=== PATIENT | male | born 1955 | race Caucasian/White ===

== ENCOUNTER 2020-04-05 13:12 | Emergency (ER) | payer BC ==
[2020-04-05] MEDS ORDERED: Proparacaine 0.5% Opth 15 ML BOT ONE (14:07)
[2020-04-05] MEDS ORDERED: Boostrix 0.5 ML (Tdap) VIAL ONE (14:07)
[2020-04-05] MEDS ORDERED: Fluorescein Opthalmic Strip ONE (14:12)
[2020-04-05 14:34] LABS: #Eosinphils 0.2 thou/uL (0.0-0.7); #Monocytes 0.6 thou/uL (0.11-0.59); #Neutrophils 6.2 thou/uL (1.40-6.50); %Basophils 0.5 % (0.0-1.0); %Eosinophils 2.1 % (0.0-10.0); %Lymphocytes 12.7 % (21.0-51.0); %Monocytes 7.3 % (0.0-10.0); %Neutrophils 77.4 % (42.0-75.0); Hemoglobin 14.8 g/dL (14.0-18.0); Mean Corpuscular HGB CONC 33.6 g/dL (32.0-36.0); Mean Corpuscular Hemoglobin 30.7 pg (27.0-31.0); Mean Corpuscular Volume 91.3 fL (78.0-98.0); Mean Platelet Volume 8.6 fL (7.4-10.4); Platelet Count 154 thou/uL (130-400); Red Blood Cell (RBC) Count 4.81 mill/uL (4.70-6.10)
--- NOTE | 2020-04-05 14:45 | CT ---
BRAIN CT WITHOUT IV CONTRAST: History: Altered mental status. FINDINGS: No focal mass or midline shift. No intra or extraaxial hemorrhage. Mild sinus mucosal changes in the ethmoid sinuses. Mastoids are clear of acute process. IMPRESSION: No significant acute intracranial process. Mild ethmoid sinus mucosal disease. POS: RRE
[2020-04-05 15:00] LABS: ALT (SGPT) 34 U/L (8-55); AST (SGOT) 22 U/L (5-34); Albumin 4.3 g/dL (3.4-4.8); Alkaline Phosphatase 86 U/L (40-110); Anion Gap 14 mmol/L (10-20); BUN (Urea Nitrogen) 13 mg/dL (8.4-25.7); Bilirubin, Total 0.6 mg/dL (0.2-1.2); CK (CPK) 158 U/L (30-200); Calc. Creatinine Clearance 0 mL/min (70-130); Carbon Dioxide 26 mmol/L (23-31); Chloride 104 mmol/L (98-107); Globulin 2.5 g/dL (2.4-3.5); Glucose 122 mg/dL (80-115); Lipase 71 U/L (8-78); Potassium 4.5 mmol/L (3.5-5.1); Protein, Total 6.8 g/dL (5.8-8.1); Sodium 139 mmol/L (136-145)
[2020-04-05 15:16] LABS: CKMB 1.9 ng/mL (0-6.6)
[2020-04-05] MEDS ORDERED: Ibuprofen 800 MG TAB ONE (15:29)
--- NOTE | 2020-04-05 17:15 | CT ---
THORACIC SPINE CT SCAN WITHOUT IV OCNTRAST: History: Injury, altered mental status. Pain to back of head and mid-thoracic spine. FINDINGS: Multilevel disc osteophytosis changes are noted of the thoracic spine, evidence for spondylosis. No e vidence for acute thoracic spine fracture. IMPRESSION: Thoracic spine spondylosis without acute fracture or dislocation. POS: RRE
[2020-04-05 17:58] LABS: Troponin I 0.068 ng/mL (< 0.028)
== END 2020-04-05 20:18 | disposition home or self-care (01) ==
LOC: ERS 13:12
DX: S06.9X9A Unspecified intracranial injury with loss of consciousness of unspecified duration, initial encounter (principal); S05.02XA Injury of conjunctiva and corneal abrasion without foreign body, left eye, initial encounter; R79.89 Other specified abnormal findings of blood chemistry; M54.6 Pain in thoracic spine; Z23 Encounter for immunization; E11.9 Type 2 diabetes mellitus without complications; W01.0XXA Fall on same level from slipping, tripping and stumbling without subsequent striking against object, initial encounter
CPT/HCPCS: 36415; 70450; 72128; 80053; 82550; 82553; 83690; 84484; 85025; 90471; 90715; 93005

== ENCOUNTER 2020-07-28 12:15 | Emergency (ER) | payer BC ==
[2020-07-28 12:54] LABS: #Lymphocytes 0.4 thou/uL (1.20-3.40); #Monocytes 0.2 thou/uL (0.11-0.59); #Neutrophils 4.8 thou/uL (1.40-6.50); %Eosinophils 0.1 % (0.0-10.0); %Monocytes 3.9 % (0.0-10.0); Hemoglobin 13.7 g/dL (14.0-18.0); Mean Corpuscular Hemoglobin 29.3 pg (27.0-31.0); Mean Corpuscular Volume 88.9 fL (78.0-98.0); Mean Platelet Volume 7.8 fL (7.4-10.4); Platelet Count 131 thou/uL (130-400); RBC Distribution Width 12.8 % (11.5-14.5); Red Blood Cell (RBC) Count 4.69 mill/uL (4.70-6.10); White Blood Cell (WBC) Count 5.5 thou/uL (4.8-10.8)
[2020-07-28 13:08] LABS: ALT (SGPT) 52 U/L (8-55); AST (SGOT) 64 U/L (5-34); Albumin 3.7 g/dL (3.4-4.8); Alkaline Phosphatase 83 U/L (40-110); Anion Gap 14 mmol/L (10-20); BUN (Urea Nitrogen) 11 mg/dL (8.4-25.7); Bilirubin, Total 0.9 mg/dL (0.2-1.2); Calc. Creatinine Clearance 0 mL/min (70-130); Calcium 8.4 mg/dL (7.8-10.44); Carbon Dioxide 26 mmol/L (23-31); Chloride 96 mmol/L (98-107); Glucose 113 mg/dL (80-115); Potassium 3.7 mmol/L (3.5-5.1); Protein, Total 6.7 g/dL (5.8-8.1); Sodium 132 mmol/L (136-145)
[2020-07-28 13:30] LABS: CKMB 1.4 ng/mL (0-6.6)
[2020-07-28] MEDS ORDERED: Aspirin Chewable 81 MG TAB ONE (13:32)
[2020-07-28] MEDS ORDERED: Acetaminophen 500 MG TAB ONE (13:32)
[2020-07-28] MEDS ORDERED: Dexamethasone 10 MG/ML VIAL ONE (13:32)
[2020-07-28] MEDS ORDERED: Protamine Sulfate 50 MG/5 ML VIAL ONE (13:37)
[2020-07-28] MEDS ORDERED: Heparin 5,000 UNITS/ML VIAL ONE (13:37)
[2020-07-28] MEDS ORDERED: Enoxaparin Sodium 80 MG/0.8 ML SYRINGE ONE (14:56)
[2020-07-28] MEDS ORDERED: Enoxaparin Sodium 30 MG/0.3 ML SYRINGE ONE (14:56)
== END 2020-07-28 16:01 | disposition short-term general hospital (02) ==
LOC: ERS 12:15
DX: U07.1 COVID-19 (principal); J12.89 Other viral pneumonia; E87.2 Acidosis; R79.89 Other specified abnormal findings of blood chemistry; I10 Essential (primary) hypertension; E11.9 Type 2 diabetes mellitus without complications
CPT/HCPCS: 36415; 71045; 71250; 80053; 82553; 83605; 84484; 85025; 85379; 93005; 96372; 96374; J1100; J1644; J1650; J2720